=== PATIENT | male | born 1945 | race Caucasian/White ===

== ENCOUNTER 2019-10-18 08:49 | Day surgery (SDC) | payer MEDICARE, SELFPAY ==
[2019-10-18] MEDS: PROPARACAINE 0.5% OPHTH SOL 2 DROPS EYE-OP (09:40)
[2019-10-18] MEDS: CATARACT EYE COMPOUND (10 DROPS/SYRINGE) 3 DROPS EYE-OP (09:45)
[2019-10-18 09:59] VITALS: BP 148/84; PULSE 60; RESP 20; TEMP 36.9; O2SAT 99; BMI 34.2
--- NOTE | 2019-10-18 10:30 | PM.PREOP ---
Pre-operative Note Interval Note History & Physical reviewed/Exam performed by Physician: Yes Changes to H&P: No
--- NOTE | 2019-10-18 10:30 | PM.OP.1 ---
Operative Date/Time/Diagnoses Pre-op diagnosis: Nuclear cataract right eye Procedure & Clinicians Procedure: Cataract Surgery Same procedure as scheduled: Yes Surgeon: García Taylor Anesthesia Type: MAC +/- and Sedation Operative Notes Procedure in detail: Patient brought to the operating suite. Tetracaine drops placed in the right eye. Patient was prepped and draped in sterile manner. Wire lid speculum was placed in the eye. Betadine drops were placed on the eye. This was irrigated. Lidocaine jelly was placed on the eye. A paracentesis port was created with a side-port blade. 0.1 mL 1% preservative free lidocaine was injected into the anterior chamber. The anterior chamber was deepened with viscoelastic. 2.6 mm keratome was used to create a temporal clear corneal incision. Cystotome and Utrata forceps were used to create continuous tear capsulorrhexis. Balanced salt solution was used to hydro dissect the nucleus. The phacoemulsification handpiece was inserted and the nucleus was removed using the stop and chop technique. The irrigation aspiration handpiece was inserted and the remaining cortex was removed. Anterior chamber was deepened with viscoelastic. An Abbasi ZCB00 intraocular lens with a power of 22.0 was injected into the capsular bag. Irrigation aspiration handpiece was inserted and the remaining viscoelastic was removed. Incision was hydrated with balanced salt solution and found to be leak free with pressure with Weck-Elena sponges. 0.1 mL Vigamox injected anterior chamber. 0.3 mL Kenalog 10 mg was injected subconjunctivally. Lid speculum was removed. The patient left the operating room in excellent condition. Complications: none Post-operative Condition: stable Disposition: same day surgery
[2019-10-18] MEDS: LIDOCAINE JELLY 2% 5 ML 1 APPLIC TOP (11:10)
[2019-10-18] MEDS: MOXIFLOXACIN INJ 5 MG/ML VIAL EYE-OP (11:10)
[2019-10-18] MEDS: PHENYLEPHRINE/LIDOCAINE VIAL (OR) 0.2 ML EYE-OP (11:10)
[2019-10-18] MEDS: TRIAMCINOLONE 50 MG/5 ML VIAL INJ (11:10)
[2019-10-18] MEDS: BALANCED SALT IRRIG SOLN NO.2 500 ML, EPINEPHrine 1 MG IRR (11:11)
[2019-10-18] MEDS: CHONDROIDTIN/SOD HYALURONATE 1.05 ML SYRINGE INTRAOCULA (11:11)
[2019-10-18] MEDS: TETRACAINE 0.5% OPHTH DROPS 4 ML 2 DROPS EYE-OP (11:11)
[2019-10-18 11:20] VITALS: BP 109/68; PULSE 60; RESP 20; TEMP 37.1; O2SAT 98
== END 2019-10-18 11:40 | disposition home or self-care (01) ==
PROVIDERS: Family Provider Internal Medicine; PCP Student in an Organized Health Care Education/Training Program; Referring Provider Ophthalmology; Visit Provider Ophthalmology
PROC: (CPT 66984; principal; 2019-10-18 10:45)
DX: H25.11 Age-related nuclear cataract, right eye (principal)
CPT/HCPCS: 66984; J0171; J2250; J3010; J3301

== ENCOUNTER 2019-11-01 06:46 | Day surgery (SDC) | payer MEDICARE, SELFPAY ==
[2019-11-01] MEDS: CATARACT EYE COMPOUND (10 DROPS/SYRINGE) 3 DROPS EYE-OP (07:33)
[2019-11-01] MEDS: PROPARACAINE 0.5% OPHTH SOL 2 DROPS EYE-OP (07:33)
[2019-11-01 07:34] VITALS: BP 160/84; PULSE 61; RESP 14; TEMP 36.8; O2SAT 97; BMI 34.8
--- NOTE | 2019-11-01 08:10 | PM.PREOP ---
Pre-operative Note Interval Note History & Physical reviewed/Exam performed by Physician: Yes Changes to H&P: No
--- NOTE | 2019-11-01 08:10 | PM.OP.1 ---
Operative Date/Time/Diagnoses Pre-op diagnosis: Nuclear Cataract Left eye Post-op diagnosis: same Procedure & Clinicians Same procedure as scheduled: Yes Surgeon: García Taylor Anesthesia Type: MAC +/- and Sedation Operative Notes Procedure in detail: Patient brought to the operating suite. Tetracaine drops placed in the left eye. Patient was prepped and draped in sterile manner. Wire lid speculum was placed in the eye. Betadine drops were placed on the eye. This was irrigated. Lidocaine jelly was placed on the eye. A paracentesis port was created with a side-port blade. 0.1 mL 1% preservative free lidocaine was injected into the anterior chamber. The anterior chamber was deepened with viscoelastic. 2.6 mm keratome was used to create a temporal clear corneal incision. Cystotome and Utrata forceps were used to create continuous tear capsulorrhexis. Balanced salt solution was used to hydro dissect the nucleus. The phacoemulsification handpiece was inserted and the nucleus was removed using the stop and chop technique. The irrigation aspiration handpiece was inserted and the remaining cortex was removed. Anterior chamber was deepened with viscoelastic. An Abbasi ZCB00 intraocular lens with a power of 22.0 was injected into the capsular bag. Irrigation aspiration handpiece was inserted and the remaining viscoelastic was removed. Incision was hydrated with balanced salt solution and found to be leak free with pressure with Weck-Elena sponges. 0.1 mL Vigamox injected anterior chamber. 0.3 mL Kenalog 10 mg was injected subconjunctivally. Lid speculum was removed. The patient left the operating room in excellent condition. Complications: none Post-operative Condition: stable Disposition: same day surgery
[2019-11-01] MEDS: CHONDROIDTIN/SOD HYALURONATE 1.05 ML SYRINGE INTRAOCULA (08:30)
[2019-11-01] MEDS: LIDOCAINE JELLY 2% 5 ML 1 APPLIC TOP (08:31)
[2019-11-01] MEDS: PHENYLEPHRINE/LIDOCAINE VIAL (OR) 0.2 ML EYE-OP (08:31)
[2019-11-01] MEDS: MOXIFLOXACIN INJ 5 MG/ML VIAL EYE-OP (08:31)
[2019-11-01] MEDS: TRIAMCINOLONE 50 MG/5 ML VIAL INJ (08:32)
[2019-11-01] MEDS: TETRACAINE 0.5% OPHTH DROPS 4 ML 2 DROPS EYE-OP (08:32)
[2019-11-01] MEDS: BALANCED SALT IRRIG SOLN NO.2 500 ML, EPINEPHrine 1 MG IRR (08:32)
[2019-11-01 08:56] VITALS: BP 106/71; PULSE 57; RESP 16; TEMP 36.6; O2SAT 96
--- NOTE | 2019-11-01 08:59 | SUR.PHASEII ---
Discharged patient home in stable condition with friend. Denies pain or nausea at discharge. Tolerated two orange juices without difficulty.
== END 2019-11-01 09:00 | disposition home or self-care (01) ==
PROVIDERS: Family Provider Internal Medicine; PCP Student in an Organized Health Care Education/Training Program; Referring Provider Ophthalmology; Visit Provider Ophthalmology
PROC: (CPT 66984; principal; 2019-11-01 08:15)
DX: H25.12 Age-related nuclear cataract, left eye (principal); E66.9 Obesity, unspecified; I10 Essential (primary) hypertension
CPT/HCPCS: 66984; J0171; J2250; J3010; J3301